=== PATIENT | female | born 1990 | race Caucasian/White ===

== ENCOUNTER 2020-03-06 08:58 | Outpatient (CLI) | payer OTHER, SELFPAY | END 2020-03-06 08:59 | disposition home or self-care (01) | LOC: ANHSURGERY 09:01 | PROVIDERS: PCP Family Medicine; Visit Provider Obstetrics & Gynecology | DX: Z01.818 Encounter for other preprocedural examination (principal); R10.2 Pelvic and perineal pain | CPT/HCPCS: 36415; 86850; 86900; 86901 ==

== ENCOUNTER 2020-03-10 02:07 | Outpatient (CLI) | payer OTHER, SELFPAY ==
[2020-03-10 20:00] LABS: SARS-CoV-2 RNA PCR Negative
== END 2020-03-10 02:08 | disposition home or self-care (01) ==
LOC: ANHCOVIDDT 02:07
PROVIDERS: PCP Family Medicine; Visit Provider Obstetrics & Gynecology
DX: Z01.818 Encounter for other preprocedural examination (principal); Z20.828 Contact with and (suspected) exposure to other viral communicable diseases
CPT/HCPCS: 87635; C9803; U0003

== ENCOUNTER 2020-03-13 02:23 | Day surgery (SDC) | payer OTHER, SELFPAY ==
[2020-03-02 16:50] VITALS: BMI 20.7
[2020-03-13] VITALS (7 sets, daily range): BP systolic 95–116; BP diastolic 70–98; PULSE 68–99; RESP 11–20; TEMP 36.6; O2SAT 99–100
[2020-03-13] MEDS: ACETAMINOPHEN 500 MG TABLET 1000 MG PO (07:43)
[2020-03-13] MEDS: LACTATED RINGERS 1,000 ML 30 ML IV CONT (08:08)
--- NOTE | 2020-03-13 08:11 | WPDANESEPPF ---
Anes - Initial Pre Proc Eval Procedure: Operation Date: 03/13/20 09:30 Proposed Procedures p Diagnostic Laparoscopy - Dane Blackmon MD Date/Time: 03/13/20 08:11 Surgeon: Dane Blackmon MD Pre Op Diagnosis: pelvic pain, irregular vaginal bleeding Patient Data Age: 29 Gender: F Height: 1.7 m Weight: 60 kg Allergies Allergy/AdvReac Type Severity Reaction Status Date / Time No Known Allergies Allergy Verified 03/13/20 08:19 Home Medications Medication Instructions Recorded Confirmed Type alprazolam 0.5 mg tablet 0.5 mg PO TID PRN #20 tablet 07/01/19 03/02/20 Rx escitalopram oxalate 10 mg tablet 10 mg PO DAILY #90 tablet 11/02/19 03/02/20 Rx etonogestrel [Nexplanon] 1 implant SUBDERMAL ONCE 03/02/20 03/02/20 History Patient hx anesthesia problems: none Family hx anesthesia problems: none PMFSH Past Medical History Medical History (Updated 03/13/20 @ 08:12 by Emmanuel Vega DO) Anxiety Scoliosis Family History Family History Grandparent Cerebrovascular accident Father Hypertension Other Family history of heart disease in male family member before age 55 Social History Social History Smoking status: Never smoker Alcohol intake: never Substance use: never Living arrangements: with family Gender identity (if verbalized by the patient): Female Sexual Orientation (if Verbalized by the Patient): Straight or Heterosexual Spiritual care concerns: No Anes - Eval Final PreProcedure Day of Procedure 03/13/20 08:11 Patient weight: normal Heart: regular rate and rhythm Lungs: clear to auscultation and normal air movement Airway: Mallampati scale class II Neurological: alert and oriented Last oral intake: >/= 8 hours ASA classification: II Emergent: no Anesthetic plan: proceed Anesthesia type and monitoring: general ETT and standard monitoring Informed Consent: The patient's anesthetic plan and its attendant risks and benefits were discussed with the patient/family/POA. Questions were solicited and answers provided to the satisfaction of the patient/family/POA.
[2020-03-13] MEDS: KETOROLAC 15 MG/ML VIAL (*BKC) IV PUSH (08:16)
--- NOTE | 2020-03-13 10:06 | PM.IMHP ---
H&P: HPI History of Present Illness Date/Time: 03/13/20 10:06 Chief Complaint: Pelvic pain Narrative: 29 y/o female with progressively worsening pelvic pain. Ultrasound showed a 3 cm left adnexal cyst in November, but was otherwise unremarkable. Review of Systems Review of Systems: All systems reviewed & are unremarkable except as noted in HPI and below PMFSH Past Medical History Medical History Anxiety Scoliosis Family History Family History Grandparent Cerebrovascular accident Father Hypertension Other Family history of heart disease in male family member before age 55 Social History Social History Smoking status: Never smoker Alcohol intake: never Substance use: never Living arrangements: with family Gender identity (if verbalized by the patient): Female Sexual Orientation (if Verbalized by the Patient): Straight or Heterosexual Spiritual care concerns: No Meds Home Medications and Allergies Home Medications Medication Instructions Recorded Confirmed Type alprazolam 0.5 mg tablet 0.5 mg PO TID PRN #20 tablet 07/01/19 03/02/20 Rx escitalopram oxalate 10 mg tablet 10 mg PO DAILY #90 tablet 11/02/19 03/13/20 Rx etonogestrel [Nexplanon] 1 implant SUBDERMAL ONCE 03/02/20 03/02/20 History Allergies Allergy/AdvReac Type Severity Reaction Status Date / Time No Known Allergies Allergy Verified 03/13/20 08:19 Vital Signs Vital Signs - 24 hr 03/13/20 07:45 Temperature 36.6 C Pulse Rate 94 Respiratory Rate 20 Blood Pressure 111/76 Pulse Oximetry 99 Exam Const: Orientation/consciousness: patient oriented x3 Other: Well-developed, well-nourished female in no acute distress. Neck: Thyroid: thyroid normal Lymphatic: no lymphadenopathy noted (in neck, axilla or inguinal nodes) Resp: Effort & Inspection: normal respiratory effort Auscultation: clear to auscultation bilaterally Cardio: Rate: regular rate Rhythm: regular rhythm Heart sounds: S1 normal heart sound present and S2 normal heart sound present GI: Other: ABD: Soft, nontender, nondistended. No guarding or rebound tenderness. No hepatosplenomegaly. : General: Yes no CVA tenderness Other: External genitalia: normal female hair distribution, without lesion. Urethral meatus: no lesion, non prolapsed. Bladder: no mass, nontender Vagina: well-estrogenized, without lesion or discharge. No cystocele or rectocele. Cervix: no lesion or discharge. Uterus: small, anteverted, freely mobile, nontender Adnexa: no mass or tenderness. Anus/perineum: no lesions, nontender Back/Spine/Pelvis: Back: no CVA tenderness Skin: General skin exam: normal color and no rashes or lesions noted Neuro: General: patient oriented x3 Extrem: Other: Extremities: nontender with no edema Psych: Mental Status: mental status grossly normal Affect: normal affect Assessment and Plan Assessment and plan (1) Pelvic pain: Code(s): R10.2 - Pelvic and perineal pain Status: Acute Assessment and Plan: A: Pelivc pain with dyspareunia. P: Because of the longstanding nature of her pain and the fact that it is progressively getting worse, she is interested in surgical management. Specifically, I have offered her a diagnostic laparoscopy. She understands risks of surgery to include risks of anesthesia, risks of pain, infection, bleeding, blood products, thromboembolic phenomena and damage to adjacent structures such as bowel, bladder, ureters, blood vessels and nerves. She understands all these risks and elects to proceed with surgery. (2) Dyspareunia: Status: Acute
--- NOTE | 2020-03-13 10:09 | WPDHPUPDATE1 ---
History and Physical Update Update Date/Time: 03/13/20 10:09 History and Physical has been reviewed, including an updated exam of the patient. There are NO changes in the patient's condition. Risks, benefits, and alternatives have been discussed and questions answered. Patient agrees to proceed with procedure.
--- NOTE | 2020-03-13 11:06 | PM.PROC ---
Procedure Note - Detailed Date of procedure: 03/13/20 Pre-op diagnosis: pelvic pain, irregular vaginal bleeding Pelvic pain Dyspareunia Post-op diagnosis: same Procedure performed: Diagnostic laparoscopy Description of procedure: The patient was taken to the operating room where general endotracheal anesthesia was administered. She was prepared and draped in the usual sterile fashion in the dorsal lithotomy position. The bladder was drained with a red rubber catheter. A sterile speculum was inserted into the vagina and the anterior lip of the cervix was grasped with a single-toothed tenaculum. The acorn uterine manipulator was placed. The speculum was withdrawn. Gloves were changed and attention was turned to the abdomen. An infraumbilical skin incision was made with a scalpel. The abdomen was tented and a 5 millimeter bladeless trocar trocar was advanced under direct laparoscopic visualization. Pneumoperitoneum was administered using carbon dioxide gas. A survey of the pelvis and abdomen yielded the findings noted above. Hemostasis was excellent. The trocar was withdrawn and the gas was allowed to escape. The skin incision was reapproximated using 4-0 Vicryl in interrupted subcuticular fashion. Dermaflex was applied externally. The vaginal instrumentation was withdrawn and hemostasis was excellent here as well. Sponge, lap, needle and instrument counts were correct. The patient was awakened and taken to recovery in stable condition. I was present and scrubbed through the entire procedure. Implants: None Anesthesia: GETA Surgeon: Dane Blackmon MD Estimated blood loss (mL): 5 Drains: No Packing: No Pathology: none sent Complications: None Condition: stable Disposition: PACU Findings: Normal-appearing right upper quadrant anatomy. Vermiform appendix not seen. Normal-appearing pelvis. Specifically, normal anterior and posterior cul de sac, normal-appearing uterus, bilateral tubes and ovaries, normal-appearing bilateral uterosacral and round ligaments.
== END 2020-03-13 12:33 | disposition home or self-care (01) ==
PROVIDERS: PCP Family Medicine; Visit Provider Obstetrics & Gynecology
PROC: (CPT 49320; principal; 2020-03-13 09:30)
DX: R10.2 Pelvic and perineal pain (principal); N93.9 Abnormal uterine and vaginal bleeding, unspecified; N94.10 Unspecified dyspareunia; F41.9 Anxiety disorder, unspecified
CPT/HCPCS: 49320; A9270; J1100; J1885; J2250; J2405; J2710; J3010; J7120

== ENCOUNTER 2023-10-01 20:13 | Emergency (ER) | payer OTHER, SELFPAY ==
--- NOTE | ~2023-10-01 | XR_ITS ---
EXAMINATION: XR chest 1V portable DATE: 10/01/2023 21:01 INDICATION: Chest pain. TECHNIQUE: A single frontal view of the chest was obtained. COMPARISON: Chest 2 views 07/09/2017 FINDINGS: There is no pneumonia, pleural effusion, or pneumothorax. The heart size is normal. IMPRESSION: 1. No acute cardiopulmonary disease. Reviewed, dictated and finalized at location E.
[2023-10-01 20:15] VITALS: BP 133/79; PULSE 96; RESP 16; TEMP 36.5; O2SAT 100
--- NOTE | 2023-10-01 20:19 | ECG_ITS ---
Test Date: 2023-10-01 20:27:45 Measurements Intervals [place] Rate: 83 P: 67 DE: 177 QRS: 39 QRSD: 87 T: 49 QT: 351 QTc: 413 Interpretive Statements SINUS RHYTHM WITH SINUS ARRHYTHMIA NORMAL ECG No previous ECG available for comparison Electronically Signed On 10-01-2023 20:29:51 CDT by Jamie Molina D.O.
--- NOTE | 2023-10-01 20:36 | ED.GENADULT ---
HPI - General Adult General Chief complaint: Unspecified Stated complaint: something stuck in throat last noc, now CP/SOB Time Seen by Provider: 10/01/23 20:30 Source: patient Mode of arrival: ambulatory Limitations: no limitations History of Present Illness HPI narrative: this is a 33-year-old female who presents to the ED with chief complaint of chest pain and shortness of breath beginning earlier today. Patient reports that she has had a couple episodes of possible fluid bolus over the past couple of days. Last night around 2:00 a.m. she states she ate some ham that took a very long time to feel like she was able to swallow. Today she had some cauliflower around 5:00 p.m. and had a similar sensation but not as bad. She has no anxious about swallowing solids but tolerates liquids well. Does endorse some increasing indigestion over the past few months. Related Data Home Medications Medication Instructions Recorded Confirmed No Home Medications 05/20/23 05/20/23 Allergies Allergy/AdvReac Type Severity Reaction Status Date / Time No Known Allergies Allergy Verified 05/20/23 08:04 Review of Systems Review of Systems: All systems as dictated in [facility] Past Medical History Medical History Anxiety Scoliosis Family History Family History Grandparent Cerebrovascular accident Father Hypertension Colon cancer Macular degeneration disease Glaucoma Mother No problems noted. 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 Speaking in full sentences without difficulty. HEAD: Normocephalic, atraumatic. EYES: PERRLA and EOMI. ENT: Tolerating secretions , no drooling. Nares clear, no rhinorrhea or epistaxis. Mucous membranes moist. Oropharynx without tonsillar hypertrophy exudate or other lesions. NECK: Supple. No adenopathy or masses. CHEST: No respiratory distress. Clear to auscultation. No wheezes rales or rhonchi HEART: Regular rate and rhythm. No murmur heard. Normal peripheral pulses. ABDOMEN: Soft, nontender, nondistended, normal active bowel sounds. MSK: Normal range of motion. No edema. SKIN: Warm, dry, no rash. NEURO: Alert and oriented x4. No focal deficits. PSYCH: Normal mood and affect. Course Vital Signs Vital signs: Vital Signs Temperature 97.7 F 10/01/23 20:15 Pulse Rate 96 10/01/23 20:15 Respiratory Rate 16 10/01/23 20:15 Blood Pressure 133/79 10/01/23 20:15 Pulse Oximetry 100 10/01/23 20:15 Oxygen Delivery Room Air 10/01/23 20:15 Temperature 97.7 F 10/01/23 20:15 Pulse Rate 89 10/01/23 21:41 Respiratory Rate 16 10/01/23 21:41 Blood Pressure 124/76 10/01/23 21:41 Pulse Oximetry 100 10/01/23 21:41 Oxygen Delivery Room Air 10/01/23 20:15 Medical Decision Making MDM Narrative Medical decision making narrative: This is a 33-year-old female who presents to the ED for chief complaint of dysphagia/chest pain. Vitals are normal. EKG shows normal sinus rhythm. Exam is benign. She is tolerating secretions. She is able to tolerate p.o.. She has a
[2023-10-01 21:41] VITALS: BP 124/76; PULSE 89; RESP 16; O2SAT 100
== END 2023-10-01 21:43 | disposition home or self-care (01) ==
PROVIDERS: Emergency Provider Physician Assistant; PCP Family Medicine
DX: R13.10 Dysphagia, unspecified (principal)
CPT/HCPCS: 71045; 93005; 99283

== ENCOUNTER 2023-10-21 07:02 | Outpatient (NON) | payer OTHER, SELFPAY | END 2023-10-21 07:03 | disposition home or self-care (01) | LOC: ANHLAB 10-22 07:03 | PROVIDERS: PCP Family Medicine; Visit Provider Internal Medicine Gastroenterology | DX: R10.13 Epigastric pain (principal) | CPT/HCPCS: 88305 ==

== ENCOUNTER 2023-10-21 10:28 | Day surgery (SDC) | payer OTHER, SELFPAY ==
[2023-10-10 10:52] VITALS: BMI 22.0
[2023-10-13 12:38] VITALS: BMI 22.3
--- NOTE | 2023-10-20 19:44 | P.HP_ITS ---
History of Present Illness History of Present Illness Consent: Risks, benefits, and alternatives have been discussed and questions answered. Patient agrees to proceed with procedure. Chief complaint: Dysphagia, unspecified Narrative: Sheridan Heard is a 33 year old female who presented to [facility] on 10/01/2023 for complaints of chest pain and SOB with possible food bolus. States prior to arriving to the ER she did eat some ham that felt as if it got stuck in the middle of her chest. states she did cough some of it up and walk after approximately 10 minutes the food seemed to pass. States she had another episode later that day with swallowing some cauliflower. Review of Systems Review of Systems: All systems reviewed & are unremarkable except as noted in HPI and below PMFSH Past Medical History Medical History Anxiety Scoliosis Family History Family History Grandparent Cerebrovascular accident Father Hypertension Colon cancer Macular degeneration disease Glaucoma Mother No problems noted. 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 (if verbalized by the patient): Female Sexual Orientation (if Verbalized by the Patient): Straight or Heterosexual Spiritual care concerns: No Agree to blood products: Yes Meds Home Medications and Allergies Home Medications Medication Instructions Recorded Confirmed Type omeprazole 20 mg capsule,delayed 20 mg PO BID 10/08/23 10/21/23 History release Allergies Allergy/AdvReac Type Severity Reaction Status Date / Time No Known Allergies Allergy Verified 10/21/23 11:33 Exam Const: General: alert Orientation/consciousness: patient oriented x3 Resp: Auscultation: clear to auscultation bilaterally Cardio: Rhythm: regular rhythm GI: GI Palp: Yes Soft to palpation and No Tenderness to palpation present (GI) Neuro: General: patient oriented x3 Assessment and Plan Assessment and plan (1) Dysphagia: Code(s): R13.10 - Dysphagia, unspecified Status: Inactive Assessment and Plan: EGD with possible biopsy or dilatation or cautery. Plan EGD with possible biopsy or dilatation or cautery.
[2023-10-21 11:48] VITALS: BP 111/76; PULSE 81; TEMP 36.7; O2SAT 100
--- NOTE | 2023-10-21 11:54 | P.PNAN_ITS ---
Anes - Initial Pre Proc Eval Procedure: Operation Date: 10/21/23 13:30 Proposed Procedures p Esophagogastroduodenoscopy - Chadwick Ford MD Date/Time: 10/21/23 11:54 Surgeon: Chadwick Ford MD Pre Op Diagnosis: Dysphagia, unspecified Patient Data Age: 33 Gender: F Height: 1.68 m Weight: 60.5 kg Last Vital Signs Temp 36.7 C 10/21/23 11:48 Pulse 81 10/21/23 11:48 BP 111/76 10/21/23 11:48 Pulse Ox 100 10/21/23 11:48 O2 Del Method Room Air 10/21/23 11:48 Allergies Allergy/AdvReac Type Severity Reaction Status Date / Time No Known Allergies Allergy Verified 10/21/23 11:33 Home Medications Medication Instructions Recorded Confirmed Type omeprazole 20 mg capsule,delayed 20 mg PO BID 10/08/23 10/21/23 History release Patient hx anesthesia problems: none Family hx anesthesia problems: none Results Review: All pre-operative results and documents have been reviewed as part of the pre- operative evaluation. COUNTS INCLUDE 234 BEDS AT THE [facility] Past Medical History Medical History Anxiety Scoliosis Family History Family History Grandparent Cerebrovascular accident Father Hypertension Colon cancer Macular degeneration disease Glaucoma Mother No problems noted. 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 (if verbalized by the patient): Female Sexual Orientation (if Verbalized by the Patient): Straight or Heterosexual Spiritual care concerns: No Agree to blood products: Yes Anes - Eval Final PreProcedure Day of Procedure 10/21/23 11:54 Patient weight: normal Heart: regular rate and rhythm Lungs: clear to auscultation Airway: Mallampati scale class II Neurological: alert and oriented Last oral intake: >/= 8 hours ASA classification: II Emergent: no Anesthetic plan: proceed Anesthesia type and monitoring: general GIVS and standard monitoring Results Review: All pre-operative results and documents have been reviewed as part of the pre- operative evaluation. Informed Consent: The patient's anesthetic plan and its attendant risks and benefits were discussed with the patient/family/POA. Questions were solicited and answers prov ided to the satisfaction of the patient/family/POA.
[2023-10-21] MEDS: LACTATED RINGERS 1,000 ML 150 ML IV CONT (11:58)
--- NOTE | 2023-10-21 12:00 | P.PNAN_ITS ---
Anes - Initial Pre Proc Eval Procedure: Operation Date: 10/21/23 13:30 Proposed Procedures p Esophagogastroduodenoscopy - Chadwick Ford MD Date/Time: 10/21/23 12:00 Surgeon: Chadwick Ford MD Pre Op Diagnosis: Dysphagia, unspecified Patient Data Age: 33 Gender: F Height: 1.68 m Weight: 60.5 kg Last Vital Signs Temp 36.7 C 10/21/23 11:48 Pulse 81 10/21/23 11:48 BP 111/76 10/21/23 11:48 Pulse Ox 100 10/21/23 11:48 O2 Del Method Room Air 10/21/23 11:48 Allergies Allergy/AdvReac Type Severity Reaction Status Date / Time No Known Allergies Allergy Verified 10/21/23 11:33 Home Medications Medication Instructions Recorded Confirmed Type omeprazole 20 mg capsule,delayed 20 mg PO BID 10/08/23 10/21/23 History release Patient hx anesthesia problems: none Family hx anesthesia problems: none Results Review: All pre-operative results and documents have been reviewed as part of the pre- operative evaluation. [facility] Past Medical History Medical History Anxiety Scoliosis Family History Family History Grandparent Cerebrovascular accident Father Hypertension Colon cancer Macular degeneration disease Glaucoma Mother No problems noted. 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 (if verbalized by the patient): Female Sexual Orientation (if Verbalized by the Patient): Straight or Heterosexual Spiritual care concerns: No Agree to blood products: Yes Anes - Eval Final PreProcedure Day of Procedure 10/21/23 12:00 Patient weight: normal Heart: regular rate and rhythm Lungs: clear to auscultation Airway: Mallampati scale class II Neurological: alert and oriented Last oral intake: >/= 8 hours ASA classification: II Emergent: no Anesthetic plan: proceed Anesthesia type and monitoring: general GIVS and standard monitoring Results Review: All pre-operative results and documents have been reviewed as part of the pre- operative evaluation. Informed Consent: The patient's anesthetic plan and its attendant risks and benefits were discussed with the patient/family/POA. Questions were solicited and answers prov ided to the satisfaction of the patient/family/POA.
[2023-10-21 12:27] VITALS: BP 84/47; PULSE 81; RESP 16; O2SAT 98
--- NOTE | 2023-10-21 12:34 | WPDANESPN ---
Anes - Prog Note Post-Op Date/Time: 10/21/23 12:34 Cardiovascular status: normal Respiratory status: normal Airway patency: baseline Mental status: baseline Post-Op hydration status: normal Vital Signs: Last Vital Signs Temp 36.7 C 10/21/23 11:48 Pulse 81 10/21/23 11:48 BP 111/76 10/21/23 11:48 Pulse Ox 100 10/21/23 11:48 O2 Del Method Room Air 10/21/23 11:48 Pain Score (VAS): 0/10 I/O: Intake & Output 10/20/23 10/21/23 10/21/23 23:59 07:59 15:59 Intake Total 400 Balance 400 Patient Feedback: Patient satisfied with anesthetic care.
[2023-10-21 12:37] VITALS: BP 101/73; PULSE 81; RESP 20; O2SAT 100
[2023-10-21 12:47] VITALS: BP 107/73; PULSE 82; RESP 20; O2SAT 100
== END 2023-10-21 13:00 | disposition home or self-care (01) ==
PROVIDERS: PCP Family Medicine; Visit Provider Internal Medicine Gastroenterology
PROC: 0DJ08ZZ Inspection of Upper Intestinal Tract, Via Natural or Artificial Opening Endoscopic (ICD-10-PCS; CPT 43235; principal; 2023-10-21 13:30)
DX: R13.19 Other dysphagia (principal); K22.2 Esophageal obstruction; K21.00 Gastro-esophageal reflux disease with esophagitis, without bleeding
CPT/HCPCS: 43249; 43239

== ENCOUNTER 2024-07-13 11:10 | Outpatient (CLI) | payer OTHER, SELFPAY ==
--- OUTSIDE RECORDS SUMMARY | 2024-07-13 12:59 | XMS_ITS | Continuity of Care Document ---
Author Organization [facility] Address [address] [place] [address] Phone Care Team Providers Care Drafting Instructor Name Role Phone Papisoraidadorie, Gabino Unavailable Unavailable Procedures Procedure Date Office/outpatient Visit, Est Office Consultation Advance Directives Directive Yes / No Effective Date File Name No Information Encounters Encounter Description Practice Location Reason(s) For Visit Diagnoses Date Provider Providers Copied on Encounter Office/outpat ient Visit, Est [facility], [address] [place] [address] [address], [place], [place], [id number], tel:[phone] [facility] No Information 8 Krishnasamy Gabino. [address] [facility] [address] [facility], [place], [place], [facility], [place]. tel:[phone] Referring Provider: Jack Jones MD F, [address] [place], [address]. tel:[phone] Office Consultation [facility], [address] [place] [address] [address], [place], [place], [id number], [place] tel:[phone] [facility] No Information [address]. [address] [facility] , [address], [place], [address], . tel:[phone] Referring Provider: Jack Jones MD F, [address] [place], [address]. tel:[phone] Family History Family Member Type Diagnosis Age At Onset No Information Payers Payer name Insurance type Covered constitution party ID Authoriza tion(s) No Information Social History Type Description Quantity Date Captured Comments Sex Female Smoking Status No Information Chief Complaint And Reason For Visit No Information Reason For Referral Reason For Referral No Information History Of Present Illness Encounter Date Complaint History Of Prese nt Illness No Information Functional Status Date Functional Assessmen t No Information Instructions Date Instruction Additional Infor mation No Information Assessments Type Assessment Date No Information Patient Care Teams Name Effective Dates (start - stop) Status Members No Information
--- OUTSIDE RECORDS SUMMARY | 2024-07-13 13:00 | XMS_ITS | Referral Summary ---
Author Organization [facility] Virtual Care Address [address] [place] [phone] Phone Care Team Providers Care Sulphate Tester Name Role Phone Unknown, Notinfile Primary Care Provider Unavail able Allergies No known active allergies Medications naproxen (NAPROSYN) 500 mg tablet Take 1 tablet (500 mg total) by mouth 2 (two) times a day with meals 30 tablet 12/15/19 21 Active cyclobenzaprine (FLEXERIL) 10 mg tablet Take 1 tablet (10 mg total) by mouth 2 (two) times a day as needed for muscle spasms 20 tablet 12/15/19 21 Active polyethylene glycol (GoLYTELY) 236-22.74-6.74 -5.86 gram solution Follow instructions provided by [facility] GI Division 4000 mL 08/18/19 22 Active ondansetron ODT (ZOFRAN-ODT) 4 mg disintegrating tablet DISSOLVE 1 TABLET ON THE TONGUE EVERY 6 HOURS NEEDED FOR NAUSEA OR VOMITING 07/03/19 22 Active multivitamin capsule Take 1 capsule by mouth daily Active Active Problems Problem Noted Date Diagnosed Date Encounter for screening colonoscopy 08/17/2021 Overview (08/17/2021): Added automatically from request for surgery [id number] Family history of colon cancer in father 022 Overview (08/17/2021): Added automatically from request for surgery [id number] Attention deficit disorder 12/21/2013 Overview (06/29/2016): ADHD - Attention deficit disorder with hyperactivity Gastroesophageal reflux disease 12/21/2013 Overview (06/29/2016): GERD Irritable bowel syndrome 12/21/2013 Overview (06/29/2016): IBS - Irritable bowel syndrome Acquired scoliosis 12/21/2013 Overview (06/29/2016): Scoliosis Social History Tobacco Use Types Packs/Day Years Used Date Smoking Tobacco: Never Smokeless Tobacco: Never Alcohol Use Standard Drinks/Week Comments Yes 0 (1 standard drink = 0.6 oz pur e alcohol) AUDIT-C Answer Date Recorded Q1: How often do you have a drink containing alc ohol? 2-4 times a month 10/09/2021 Q2: How many drinks containi ng alcohol do you have on a typical day when you are drinking? 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 Gender Identity Not on file Sexual Orientation Not on file Last Filed Vital Signs Vital Sign Reading Time Taken Comments Blood Pressure 105/78 10/09/2021 1:57 PM CDT Pulse 89 10/09/2021 1:57 PM CDT Temperature 36.3 C (97.3 F) 10/09/2021 1:37 PM CDT Respiratory Rate 20 10/09/2021 1:57 PM CDT Oxygen Saturation 100% 10/09/2021 1:57 PM CDT Inhaled Oxygen Concentration - - Weight 56.7 kg (125 lb) 08/17/2021 8:18 AM CDT Height 167.6 cm (5' 6 ) 08/17/2021 8:18 AM CDT Body Mass Index 20.18 08/17/2021 8:18 AM CDT Plan of Treatment Not on file Insurance [employer] [facility] [employer] Address: [address] [place] [address] [facility] [employer] Address: [address] [place] [address] [facility] [employer] Address: [facility] [id number] [place] [address] [facility] Advance Directives For more information, please contact: [phone] * Full Code (Latest Code Status on File) Date Activated Date Inactivated Comments 10/09/2021 11:49 AM 10/09/2021 6:17 PM Care Teams Sulphate Tester Relationship Specialty Start Date End Date Unknown, Notinfile PCP - General 12/14/20
--- OUTSIDE RECORDS SUMMARY | 2024-07-13 13:00 | XMS_ITS | Clinical Summary ---
Author Organization [facility] Virtual Care Address [address] [place] [phone] Phone Care Team Providers Care Stencil Typist Name Role Phone Unknown, Notinfile Primary Care [...] -5.86 gram solution Follow instructions provided by [facility] GI Division 4000 mL 08/18/19 22 Active ondansetron ODT (ZOFRAN-ODT) 4 mg disintegrating tablet DISSOLVE 1 TABLET ON THE TONGUE EVERY 6 HOURS NEEDED FOR NAUSEA OR VOMITING 07/03/19 22 Active multivitamin capsule Take 1 capsule by mouth daily Active Active Problems Problem Noted Date Diagnosed Date Encounter for screening colonoscopy 08/17/2021 Overview (08/17/2021): Added automatically from request for surgery [id number] Family history of colon cancer in father 022 Overview (08/17/2021): Added automatically from request for surgery [id number] Attention deficit disorder 12/21/2013 Overview (06/29/2016): ADHD - Attention deficit disorder with hyperactivity Gastroesophageal reflux disease 12/21/2013 Overview (06/29/2016): GERD Irritable bowel syndrome 12/21/2013 Overview (06/29/2016): IBS - Irritable bowel syndrome Acquired scoliosis 12/21/2013 Overview (06/29/2016): Scoliosis Surgical History Surgery Date Site/Laterality Comments LAPAROSCOPY UPPER GASTROINTESTINAL ENDOSCOPY Family History Medical History Relation Name Comments Colon cancer Father Relation Name Status Comments Father Social History Tobacco Use Types Packs/Day Years [...] on file 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 Gender Identity Not on file Sexual Orientation Not on file Obstetrics History Last Filed Vital Signs Vital Sign Reading [...] 08/17/2021 8:18 AM CDT Plan of Treatment Health Maintenance Due Date Last Done Comments Cervical Cancer Screening 1991 Depression Screening 1991 Hepatitis C Screening 1991 Varicella Vaccines (1 of 2 - 13+ 2-dose series) 2004 Regular Well Visit/Exam 18-64 2009 DTaP/Tdap/Td Vaccine (9 - Tdap) 08/24/2015 08/23/2005, 09/10/2001, 09/10/2001, Additional history exists Covid-19 Vaccine (3 season) 2023 04/27/2020, 04/06/2020 Influenza Vaccine (Season Ended) 2024 Hepatitis B Screening Completed 10/31/1992 , 06/20/1992, 03/21/1992, Additional history exists HPV Vaccines Aged Out No longer eligi ble based on patient's age to complete this topic Pneumococcal vaccine <65 Aged Out No longer eligible based on patient's age to complete this topic Insurance [facility] [employer] Address: [facility] [id number] [place] [phone] [facility] [employer] Address: [address] [place] [address] [facility] [employer] Address: [facility] [address] [place] [address] [employer] Advance Directives For more information, please contact: [phone] * Full Code (Latest Code Status on File) Date Activated Date Inactivated Comments 10/09/2021 11:49 AM 10/09/2021 6:17 PM Care Teams Stencil Typist Relationship Specialty Start Date End Date Unknown, Notinfile PCP - General 12/14/20
== END 2024-07-13 11:11 | disposition home or self-care (01) ==
PROVIDERS: PCP Family Medicine; Visit Provider Nurse Practitioner Family
DX: I49.8 Other specified cardiac arrhythmias (principal); R00.0 Tachycardia, unspecified; R42 Dizziness and giddiness
CPT/HCPCS: 93242

== ENCOUNTER 2024-08-10 15:03 | Emergency (ER) | payer OTHER, SELFPAY ==
--- NOTE | ~2024-08-10 | XR_ITS ---
EXAMINATION: XR chest 2V Exam Date/Time: 08/10/2024 17:02 CDT HISTORY: chest pain on L side, palpitations Comparison: 10/01/2023. RESULT: Lines, tubes, and devices: None. Lungs and pleura: Clear. Cardiomediastinal silhouette: Stable. Other: No acute osseous or upper abdominal finding. IMPRESSION: No acute cardiopulmonary process. Reviewed, dictated and finalized at location K.
[2024-08-10 15:06] VITALS: BP 114/74; PULSE 96; RESP 16; TEMP 36.4; O2SAT 99
--- OUTSIDE RECORDS SUMMARY | 2024-08-10 15:06 | XMS_ITS | Referral Summary ---
Author Organization [facility] Virtual Care Address [address] [place] [phone] Phone Care Team Providers Care Court Security Officer Name Role Phone Unknown, Notinfile Primary Care [...] -5.86 gram solution Follow instructions provided by [facility] GI Division 4000 mL 08/18/19 22 Active ondansetron ODT (ZOFRAN-ODT) 4 mg disintegrating tablet DISSOLVE 1 TABLET ON THE TONGUE EVERY 6 HOURS NEEDED FOR NAUSEA OR VOMITING 07/03/19 22 Active multivitamin capsule Take 1 capsule by mouth daily Active Active Problems Problem Noted Date Diagnosed Date Encounter for screening colonoscopy 08/17/2021 Overview (08/17/2021): Added automatically from request for surgery [id number] Family history of colon cancer in father 022 Overview (08/17/2021): Added automatically from request for surgery [id number] Attention deficit disorder 12/21/2013 Overview (06/29/2016): ADHD [...] on file 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 Gender Identity Not on file Sexual Orientation [...] of Treatment Not on file Insurance [employer] [facility] [employer] Address: [address] [place] [address] [facility] [employer] Address: [address] [place] [address] [facility] [employer] Address: [facility] [id number] [place] [address] [facility] Advance Directives For more information, please contact: [phone] * Full Code (Latest Code Status on File) Date Activated Date Inactivated Comments 10/09/2021 11:49 AM 10/09/2021 6:[address] Security Officer Relationship Specialty Start Date End Date Unknown, Notinfile PCP - General 12/14/20
--- OUTSIDE RECORDS SUMMARY | 2024-08-10 15:06 | XMS_ITS | Clinical Summary ---
Author Organization [facility] Virtual Care Address [address] [place] [phone] Phone Care Team Providers Care Erp Implementation Consultant Name Role Phone Unknown, Notinfile Primary Care [...] -5.86 gram solution Follow instructions provided by [facility] GI Division 4000 mL 08/18/19 22 Active ondansetron ODT (ZOFRAN-ODT) 4 mg disintegrating tablet DISSOLVE 1 TABLET ON THE TONGUE EVERY 6 HOURS NEEDED FOR NAUSEA OR VOMITING 07/03/19 22 Active multivitamin capsule Take 1 capsule by mouth daily Active Active Problems Problem Noted Date Diagnosed Date Encounter for screening colonoscopy 08/17/2021 Overview (08/17/2021): Added automatically from request for surgery [id number] Family history of colon cancer in father 022 Overview (08/17/2021): Added automatically from request for surgery [id number] Attention deficit disorder 12/21/2013 Overview (06/29/2016): ADHD [...] on file 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 Gender Identity Not on file Sexual Orientation [...] patient's age to complete this topic Insurance [facility] [employer] Address: [facility] [id number] [place] [phone] [facility] [employer] Address: [address] [place] [address] [employer] Advance Directives For more information, please contact: [phone] * Full Code (Latest Code Status on File) Date Activated Date Inactivated Comments 10/09/2021 11:49 AM 10/09/2021 6:17 PM Care Teams Erp Implementation Consultant Relationship Specialty Start Date End Date Unknown, Notinfile PCP - General 12/14/20
--- OUTSIDE RECORDS SUMMARY | 2024-08-10 15:06 | XMS_ITS | Continuity of Care Document ---
Author Organization [facility] Address [address] [place] [address] Phone Care Team Providers Care Rn Obgyn Name Role Phone Papisoraidadorie, Gabino Unavailable Unavailable Procedures Procedure Date Office/outpatient Visit, Est Office Consultation Advance Directives Directive Yes / No Effective Date File Name No Information Encounters Encounter Description Practice Location Reason(s) For Visit Diagnoses Date Provider Providers Copied on Encounter Office/outpat ient Visit, Est [facility], [address] [place] [address] [address], [place], [place], [id number], tel:[phone] [facility] No Information 8 Krishnasamy Gabino. [address] [facility] [address] [facility], [place], [place], [facility], [place]. tel:[phone] Referring Provider: Jack Jones MD F, [address] [place], [address]. tel:[phone] Office Consultation [facility], [address] [place] [address] [address], [place], [place], [id number], [place] tel:[phone] [facility] No Information [address] Regis. [address] [facility] , [address], [place], [address], . tel:[phone] Referring Provider: Jack Jones MD F, [address] [place], [address]. tel:[phone] Family History Family Member Type Diagnosis Age [...]
--- NOTE | 2024-08-10 16:52 | ECG_ITS ---
Test Date: 2024-08-10 16:57:53 Measurements Intervals [place] Rate: 81 P: 66 AR: 154 QRS: 40 QRSD: 89 T: 51 QT: 366 QTc: 426 Interpretive Statements SINUS RHYTHM POSSIBLE LEFT ATRIAL ENLARGEMENT [-0.1mV P WAVE IN V1/V2] POSSIBLE RIGHT VENTRICULAR CONDUCTION DELAY [RSR (QR) IN V1/V2] ABNORMAL ECG Compared to ECG 10/01/2023 20:27:45 Sinus arrhythmia no longer present Electronically Signed On 08-11-2024 08:19:11 CDT by Blayne Diallo M.D.
[2024-08-10 16:53] VITALS: BP 97/67; PULSE 81; RESP 18; O2SAT 99
[2024-08-10 17:04] LABS: Basophils Percent Auto 0.6 % (0.2-1.2); Eosinophils Absolute Auto 0.4 K/mm3 (0-0.3); Eosinophils Percent Auto 6.1 % (0-4.4); Hematocrit 38.6 % (37.0-47.0); Hemoglobin 12.6 g/dL (12.0-15.0); Immature Granulocyte Absolute 0.04 K/mm3 (0.00-0.031); Immature Granulocyte Percent A 0.6 % (0-0.5); Lymphocytes Absolute Auto 2.32 K/mm3 (0.9-3.2); Lymphocytes Percent Auto 32.8 % (18.3-44.2); Mean Corpuscular HGB Conc 32.6 g/dl (32-36); Mean Corpuscular Hemoglobin 30.1 pg (26-34); Mean Corpuscular Volume 92.1 fl (80-100); Mean Platelet Volume 10.4 fl (7.4-10.4); Monocytes Absolute Auto 0.5 K/mm3 (0.1-0.6); Monocytes Percent Auto 7.2 % (2.6-8.5); Neutrophils Absolute Auto 3.7 K/mm3 (1.3-6.7); Neutrophils Percent Auto 52.7 % (45.5-73.1); Platelet Count Result 260 k/mm3 (150-375); Red Blood Count 4.19 M/mm3 (4.2-5.4); Red Cell Distribution Width 12.7 % (11.5-14.5); White Blood Count 7.1 K/mm3 (4.5-10.0)
[2024-08-10 17:13] LABS: Alanine Aminotransferase 22 U/L (6-35); Albumin Level 4.5 g/dL (3.5-5.1); Alkaline Phosphatase 49 U/L (38-126); Anion Gap 7 mmol/L (4-12); Aspartate Amino Transferase 29 U/L (14-36); Bilirubin,Total 0.4 mg/dL (0.2-1.3); Blood Urea Nitrogen 11 mg/dL (7-17); Calcium 8.6 mg/dL (8.4-10.2); Carbon Dioxide 24 mmol/L (22-30); Chloride 110 mmol/L (98-107); Estimated CRCL calculation 100 ml/min; Estimated Glomerular Filt Rate > 60; Glucose 97 mg/dL (65-110); Lipase 195 U/L (23-300); Potassium 3.8 mmol/L (3.4-5.0); Sodium 141 mmol/L (137-145)
[2024-08-10 17:16] LABS: INR 0.9; Prothrombin Time 12.8 Seconds (11.1-14.7)
[2024-08-10 17:17] LABS: Partial Thromboplastin Time 26.8 Seconds (22.3-36.8)
--- NOTE | 2024-08-10 17:20 | ED_ITS ---
HPI - Chest Pain General Chief Complaint: Chest Pain <PATRICK Vasquez Last Filed: 08/10/24 17:30> Stated Complaint: chest pain <PATRICK Vasquez Last Filed: 08/10/24 17:30> Time Seen by Provider: 08/10/24 17:20 <PATRICK Vasquez Last Filed: 08/10/24 17:30> Focused HPI: Patient is a 34 y/o female, with PMH of anxiety, who presents to the ED with c/o palpitations, CP, SOB. Patient reports she has had intermittent heart palpitations since mid April after having a URI, states her resting HR would be 90s-100s. She recently had a 72 hour Holter monitor at end of June. She states this showed PVCs, HR as high as 166 BPM. Has a referral to cardiology, but does not have an appointment yet. States last night she began having palpitations again around 9pm, which continued into this morning. Fells like her heart is racing, feels her heart beat in her whole body. Reports L sided chest pain today, described as dull ache. Has been feeling short of breath, worse with exertion, over the past few weeks, worse today. Does note she traveled to/from [place] 07/18-07/23. Denies new cough, BLE pain or swelling, fevers, estrogen use, excessive caffeine use, hx of blood clots. Patient is currently trying to conceive. GENERAL: Well-appearing, well-nourished, and in no acute distress. HEAD: Normocephalic, atraumatic. CHEST: Clear to auscultation. ?No respiratory distress. HEART: Regular rate and rhythm.? NEURO: ?Alert and oriented x3. Patient screened in triage and initial orders placed.? ?Additional care and disposition to be based upon?diagnostic testing and treatment. <PATRICK Vasquez Last Filed: 08/10/24 17:30> Source: patient <PATRICK Vasquez Last Filed: 08/10/24 17:30> Mode of arrival: ambulatory <PATRICK Vasquez Filed: 08/10/24 17:30> Limitations: no limitations <Delia Keith PA-C - Last Filed: 08/10/24 17:30> History of Present Illness HPI narrative: agree with MSE <Justine Stokes MD - Last Filed: 08/11/24 01:12> Related Data Allergies/Adverse Reactions: Allergies Allergy/AdvReac Type Severity Reaction Status Date / Time No Known Allergies Allergy Verified 08/10/24 15:09 <Delia Keith PA-C - Last Filed: 08/10/24 17:30> Review of Systems 2 Review of Systems: All systems reviewed & are unremarkable except as noted in HPI and below <Justine Stokes MD - Last Filed: 08/11/24 01:12> [facility] Past Medical History Medical History: Medical History Anxiety Scoliosis <Delia Keith PA-C - Last Filed: 08/10/24 17:30> Family History Family History: Family History Grandparent Cerebrovascular accident Father Hypertension Colon cancer Macular degeneration disease Glaucoma Mother No problems noted. Other Family history of heart disease in male family member before age 55 <PATRICK Vasquez Last Filed: 08/10/24 17:30> Social History Social History: Social History Smoking status: Never smoker Second hand tobacco smoke exposure: Yes Alcohol intake: current Drinks per week: 6 Alcohol use details: 5-10 drinks monthly Substance use: never Substance use type: does not use Living arrangements: with family Additional living arrangements comments: mom Occupation/Education: occupation Additional occupation/education comments: PCT at [employer] Gender identity (if verbalized by the patient): Female Sexual Orientation (if Verbalized by the Patient): Straight or Heterosexual Spiritual care concerns: No Agree to blood products: Yes <PATRICK Vasquez Last Filed: 08/10/24 17:30> Exam 2 Narrative: EXAMINATION OF ORGAN SYSTEMS/BODY AREAS: Constitutional: Vital signs per nursing GENERAL:[No acute distress, non-toxic appearing.] HEAD: Normal with no signs of head trauma. EYES: EOMI, conjunctiva normal ENT: Hearing grossly intact LUNGS: Nonlabored breathing. HEART: [Regular rate and rhythm] ABD: [Soft], [nontender to palpation] EXT: Normal range of motion SKIN: [No rashes or lesions.] NEURO: [Alert and oriented x 3. No gross focal sensory or strength deficits.] PSYCH: Slightly anxious affect <Justine Stokes MD - Last Filed: 08/11/24 01:12> Course Vital Signs Vital signs: Vital Signs Temperature 97.5 F L 08/10/24 15:06 Pulse Rate 96 08/10/24 15:06 Respiratory Rate 16 08/10/24 15:06 Blood Pressure 114/74 08/10/24 15:06 Pulse Oximetry 99 08/10/24 15:06 Oxygen Delivery Room Air 08/10/24 15:06 Temperature 97.9 F 08/10/24 20:30 Pulse Rate 82 08/10/24 20:30 Respiratory Rate 16 08/10/24 20:30 Blood Pressure 108/78 08/10/24 20:30 Pulse Oximetry 99 08/10/24 20:30 Oxygen Delivery Room Air 08/10/24 15:06 <Delia Keith PA-C - Last Filed: 08/10/24 17:30> Vital Signs Temperature 97.5 F L 08/10/24 15:06 Pulse Rate 96 08/10/24 15:06 Respiratory Rate 16 08/10/24 15:06 Blood Pressure 114/74 08/10/24 15:06 Pulse Oximetry 99 08/10/24 15:06 Oxygen Delivery Room Air 08/10/24 15:06 Temperature 97.9 F 08/10/24 20:30 Pulse Rate 82 08/10/24 20:30 Respiratory Rate 16 08/10/24 20:30 Blood Pressure 108/78 08/10/24 20:30 Pulse Oximetry 99 08/10/24 20:30 Oxygen Delivery Room Air 08/10/24 15:06 <Justine Stokes MD - Last Filed: 08/11/24 01:12> MDM - Chest Pain MDM Narrative Medical decision making narrative: MSE by REGINALD in triage. <Delia Keith PA-C - Last Filed: 08/10/24 17:30> MSE by REGINALD in triage. Patient presenting here with symptoms consistent with anxiety and palpitations. On exam patient is slightly anxious but in no distress; normal vital signs. I will obtain EKG and chest xray to rule out arrhythmia/ischemia, PE, thyroid issues, or other cause of palpitations. Chest x-ray on my independent interpretation does not show any acute abnormality, no pneumothorax or consolidation. EKG - 12-Lead: Performed at 1657. Interpreted by me. [Sinus rhythm]. Rate 81. [Normal] axis. [place]-interval [normal]. QRS duration [normal]. QTc [normal]. [No ST segment elevation or depression]. [T-wave normal]. Impression: No EKG evidence of acute ischemia or dysrhythmia. On reevaluation patient is resting comfortably, in NAD. I discussed her negative workup here. She does feel like she has been feeling more anxious than usual, agreeable to trying hydroxyzine for symptoms, and will follow up with her PCP. I do feel patient is stable for discharge home at this time with followup to their doctor, and return here if symptoms return or worsen. Agreeable to outpatient management. <Justine Stokes MD - Last Filed: 08/11/24 01:12> Lab Data Result diagrams: 08/10/24 16:59 08/10/24 16:59 <Delia Keith PA-C - Last Filed: 08/10/24 17:30> Labs: Lab Results 08/10/24 08/10/24 08/10/24 Range/Units 16:58 16:59 19:39 WBC 7.1 (4.5-10.0) K/mm3 RBC 4.19 L (4.2-5.4) M/mm3 Hgb 12.6 (12.0-15.0) g/dL Hct 38.6 (37.0-47.0) % MCV 92.1 (80-100) fl MCH 30.1 (26-34) pg MCHC 32.6 (32-36) g/dl RDW 12.7 (11.5-14.5) % Plt Count 260 (150-375) k/mm3 MPV 10.4 (7.4-10.4) fl Immature Gran % (Auto) 0.6 H (0-0.5) % Neut % (Auto) 52.7 (45.5-73.1) % Lymph % (Auto) 32.8 (18.3-44.2) % Daggett % (Auto) 7.2 (2.6-8.5) % Eos % (Auto) 6.1 H (0-4.4) % Baso % (Auto) 0.6 (0.2-1.2) % Lymph # (Auto) 2.32 (0.9-3.2) K/mm3 Daggett # (Auto) 0.5 (0.1-0.6) K/mm3 Eos # (Auto) 0.4 H (0-0.3) K/mm3 Baso # (Auto) 0.0 (0.0-0.1) K/mm3 Abs Immat Gran (auto) 0.04 H (0.00-0.031) K/mm3 Absolute Neuts (auto) 3.7 (1.3-6.7) K/mm3 Absolute Nucleated RBC 0.000 (0.0-0.012) K/mm3 Nucleated RBC % 0.0 (0.0-0.2) % PT 12.8 (11.1-14.7) Seconds INR 0.9 APTT 26.8 (22.3-36.8) Seconds D-Dimer 0.39 (<0.48) ug/mL Sodium 141 (137-145) mmol/L Potassium 3.8 (3.4-5.0) mmol/L Chloride 110 H (98-107) mmol/L Carbon Dioxide 24 (22-30) mmol/L Anion Gap 7 (4-12) mmol/L BUN 11 (7-17) mg/dL Creatinine 0.64 L (0.7-1.0) mg/dL Estim Creat Clear Calc 100 ml/min Estimated GFR > 60 (59 - ) Glucose 97 (65-110) mg/dL Calcium 8.6 (8.4-10.2) mg/dL Magnesium 2.0 (1.6-2.3) mg/dL Total Bilirubin 0.4 (0.2-1.3) mg/dL AST 29 (14-36) U/L ALT 22 (6-35) U/L Alkaline Phosphatase 49 (38-126) U/L Troponin I < 0.012 < 0.012 (0.000-0.034) ng/mL Total Protein 8.0 (6.3-8.2) g/dL Albumin 4.5 (3.5-5.1) g/dL Lipase 195 (23-300) U/L TSH (Reflex) 0.847 (0.465-4.68) uIU/mL <Delia Keith PA-C - Last Filed: 08/10/24 17:30> Lab Results 08/10/24 08/10/24 08/10/24 Range/Units 16:58 16:59 19:39 WBC 7.1 (4.5-10.0) K/mm3 RBC 4.19 L (4.2-5.4) M/mm3 Hgb 12.6 (12.0-15.0) g/dL Hct 38.6 (37.0-47.0) % MCV 92.1 (80-100) fl MCH 30.1 (26-34) pg MCHC 32.6 (32-36) g/dl RDW 12.7 (11.5-14.5) % Plt Count 260 (150-375) k/mm3 MPV 10.4 (7.4-10.4) fl Immature Gran % (Auto) 0.6 H (0-0.5) % Neut % (Auto) 52.7 (45.5-73.1) % Lymph % (Auto) 32.8 (18.3-44.2) % [place] % (Auto) 7.2 (2.6-8.5) % Eos % (Auto) 6.1 H (0-4.4) % Baso % (Auto) 0.6 (0.2-1.2) % Lymph # (Auto) 2.32 (0.9-3.2) K/mm3 [place]gett # (Auto) 0.5 (0.1-0.6) K/mm3 Eos # (Auto) 0.4 H (0-0.3) K/mm3 Baso # (Auto) 0.0 (0.0-0.1) K/mm3 Abs Immat Gran (auto) 0.04 H (0.00-0.031) K/mm3 Absolute Neuts (auto) 3.7 (1.3-6.7) K/mm3 Absolute Nucleated RBC 0.000 (0.0-0.012) K/mm3 Nucleated RBC % 0.0 (0.0-0.2) % PT 12.8 (11.1-14.7) Seconds INR 0.9 APTT 26.8 (22.3-36.8) Seconds D-Dimer 0.39 (<0.48) ug/mL Sodium 141 (137-145) mmol/L Potassium 3.8 (3.4-5.0) mmol/L Chloride 110 H (98-107) mmol/L Carbon Dioxide 24 (22-30) mmol/L Anion Gap 7 (4-12) mmol/L BUN 11 (7-17) mg/dL Creatinine 0.64 L (0.7-1.0) mg/dL Estim Creat Clear Calc 100 ml/min Estimated GFR > 60 (59 - ) Glucose 97 (65-110) mg/dL Calcium 8.6 (8.4-10.2) mg/dL Magnesium 2.0 (1.6-2.3) mg/dL Total Bilirubin 0.4 (0.2-1.3) mg/dL AST 29 (14-36) U/L ALT 22 (6-35) U/L Alkaline Phosphatase 49 (38-126) U/L Troponin I < 0.012 < 0.012 (0.000-0.034) ng/mL Total Protein 8.0 (6.3-8.2) g/dL Albumin 4.5 (3.5-5.1) g/dL Lipase 195 (23-300) U/L TSH (Reflex) 0.847 (0.465-4.68) uIU/mL <Justine Stokes MD - Last Filed: 08/11/24 01:12> Discharge Plan Discharge Clinical Impression: Heart palpitations <Delia Keith PA-C - Last Filed: 08/10/24 17:30> Patient Disposition: Home <Delia Keith PA-C - Last Filed: 08/10/24 17:30> Condition: Stable <Delia Keith PA-C - Last Filed: 08/10/24 17:30> Instructions: Heart Palpitations (ED), Anxiety (ED) <Delia Keith PA-C - Last Filed: 08/10/24 17:30> Additional Instructions: Please follow up with your photoengraving helper and your PCP; you can always return to the ER for any further issues. <Delia Keith PA-C - Last Filed: 08/10/24 17:30> Patient Language: Romansh <Delia Keith PA-C - Last Filed: 08/10/24 17:30> Prescriptions: New hydroxyzine HCl 25 mg tablet 25 mg PO TID PRN (Reason: anxiety) Qty: 14 0RF <Delia Keith PA-C - Last Filed: 08/10/24 17:30> Follow-up/Referrals: Jack Jnoes MD [Primary Care Provider] - <PATRICK Vasquez Last Filed: 08/10/24 17:30>
[2024-08-10 17:26] LABS: Troponin I < 0.012 ng/mL (0.000-0.034)
[2024-08-10 17:50] LABS: D Dimer 0.39 ug/mL (<0.48)
[2024-08-10 19:04] LABS: Thyroid Stimulating Hormone Reflex 0.847 uIU/mL (0.465-4.68)
--- NOTE | 2024-08-10 19:31 | ECG_ITS ---
Test Date: 2024-08-10 19:36:11 Measurements Intervals [place] Rate: 73 P: 75 RI: 175 QRS: 50 QRSD: 90 T: 53 QT: 360 QTc: 398 Interpretive Statements SINUS RHYTHM POSSIBLE LEFT ATRIAL ENLARGEMENT [-0.1mV P WAVE IN V1/V2] POSSIBLE RIGHT VENTRICULAR CONDUCTION DELAY [RSR (QR) IN V1/V2] ABNORMAL ECG Compared to ECG 08/10/2024 16:57:53 No significant changes Electronically Signed On 08-11-2024 08:20:11 CDT by Blayne Diallo M.D.
[2024-08-10 19:32] VITALS: BP 115/67; PULSE 79; RESP 28; TEMP 36.8; O2SAT 100
[2024-08-10 20:07] LABS: Troponin I < 0.012 ng/mL (0.000-0.034)
[2024-08-10 20:30] VITALS: BP 108/78; PULSE 82; RESP 16; TEMP 36.6; O2SAT 99
--- OUTSIDE RECORDS SUMMARY | 2024-08-10 20:58 | XMS_ITS | Continuity of Care Document ---
Author Organization [facility] Address [address] [place] [address] Phone Care Team Providers Care Consumer Recruiter Name Role Phone Papisoraidadorie, Gabino Unavailable Unavailable Procedures Procedure Date Office/outpatient Visit, Est Office Consultation Advance Directives Directive Yes / No Effective Date File Name No Information Encounters Encounter Description Practice Location Reason(s) For Visit Diagnoses Date Provider Providers Copied on Encounter Office/outpat ient Visit, Est [facility], [address] [place] [address] [address], [place], [place], [id number], tel:[phone] [facility] No Information 8 Krishnasamy Gabino. [address] [facility] [address] [facility], [place], [place], [facility], [place]. tel:[phone] Referring Provider: Jack Jones MD F, [address] [place], [address]. tel:[phone] Office Consultation [facility], [address] [place] [address] [address], [place], [place], [id number], [place] tel:[phone] [facility] No Information [address] Regis. [address] [facility] , [address], [place], [address], . tel:[phone] Referring Provider: Jack Jones MD F, [address] [place], [address]. tel:[phone] Family History Family Member Type Diagnosis Age At Onset No Information Payers Payer name Insurance type Covered alliance party ID Authoriza tion(s) No Information Social [...]
--- OUTSIDE RECORDS SUMMARY | 2024-08-10 20:58 | XMS_ITS | Referral Summary ---
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 Gender Identity Not on file Sexual Orientation [...] of Treatment Not on file Insurance [employer] [facility] [employer] Address: [address] [place] [address] [facility] [employer] Address: [address] [place] [address] [facility] [employer] Address: [facility] [id number] [place] [address] [facility] Advance Directives For more information, please contact: [phone] * Full Code (Latest Code Status on File) Date Activated Date Inactivated Comments 10/09/2021 11:49 AM 10/09/2021 6:17 PM Care Teams Electric Wheelchair Repairer Relationship Specialty Start Date End Date Unknown, Notinfile PCP - General 12/14/20
--- OUTSIDE RECORDS SUMMARY | 2024-08-10 20:59 | XMS_ITS | Clinical Summary ---
Author Organization [facility] Virtual Care Address [address] [place] [phone] Phone Care Team Providers Care Development Coach Name Role Phone Unknown, Notinfile Primary Care [...] -5.86 gram solution Follow instructions provided by [facility] GI [facility] 4000 mL 08/18/19 22 Active ondansetron ODT (ZOFRAN-ODT) 4 mg disintegrating tablet DISSOLVE 1 TABLET ON THE TONGUE EVERY 6 HOURS NEEDED FOR NAUSEA OR VOMITING 07/03/19 22 Active multivitamin capsule Take 1 capsule by mouth daily Active Active Problems Problem Noted Date Diagnosed Date Encounter for screening colonoscopy 08/17/2021 Overview (08/17/2021): Added automatically from request for surgery [id number] Family history of colon cancer in father 022 Overview (08/17/2021): Added automatically from request for surgery [id number] Attention deficit disorder 12/21/2013 Overview (06/29/2016): ADHD [...] on file 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 Gender Identity Not on file Sexual Orientation [...] patient's age to complete this topic Insurance Service Route [facility] [employer] Address: [facility] [id number] [place] [phone] Service Route [facility] [employer] Address: [address] [place] [address] [employer] Advance Directives For more information, please contact: [phone] * Full Code (Latest Code Status on File) Date Activated Date Inactivated Comments 10/09/2021 11:49 AM 10/09/2021 6:17 PM Care Teams Development Coach Relationship Specialty Start Date End Date Unknown, Notinfile PCP - General 12/14/20
== END 2024-08-10 21:39 | disposition home or self-care (01) ==
PROVIDERS: Physician Assistant; Emergency Provider Emergency Medicine; PCP Family Medicine
DX: R00.2 Palpitations (principal); M41.9 Scoliosis, unspecified; R94.31 Abnormal electrocardiogram [ECG] [EKG]
CPT/HCPCS: 36415; 71046; 80053; 83690; 83735; 84443; 84484; 85025; 85380; 85610; 85730; 93005; 99284